=== PATIENT | male | born 1995 | race Caucasian/White ===

== ENCOUNTER 2020-10-13 19:04 | Emergency (ER) | payer BC ==
[~2020-10-13] VITALS: Ht 177.8 cm; Wt 78.5 kg
[2020-10-13 19:08] VITALS: TEMP 101.1
[2020-10-13 20:22] LABS: MUCOUS Present /lpf; PH 7 (5-8); SQUAMOUS EPITHELIAL None Seen /hpf; URINE APPEARANCE Clear; URINE BACTERIA None Seen /hpf; URINE BILIRUBIN Negative (NEGATIVE); URINE BLOOD Negative (NEGATIVE); URINE COLOR Amber; URINE GLUCOSE Negative (NEGATIVE); URINE KETONE Negative (NEGATIVE); URINE LEUKOCYTE ESTERASE Negative (NEGATIVE); URINE NITRATE Negative (NEGATIVE); URINE PROTEIN(semi-quant) Negative (NEGATIVE); URINE RBC 0-2 /hpf; URINE UROBILINOGEN >=4.0 mg/dL (NEGATIVE); URINE WBC 0-2 /hpf
[2020-10-13 20:22] LABS: BASO % 0.8 % (0.0-2.0); GRAN # 1.1 (1.4-6.5); GRAN % 46.1 % (42.2-75.2); HEMATOCRIT 38.1 % (42.0-52.0); HEMOGLOBIN 13.1 g/dl (13.5-18.0); LYMPH # 0.9 (1.2-3.4); MEAN CELL VOLUME 83 fl (80.0-100.0); MEAN CORPUSCULAR HEMOGLOBIN 28 pg (27.0-31.0); MEAN CORPUSCULAR HGB CONC 34 g/dl (33.0-37.0); MEAN PLATELET VOLUME 10.8 fl (7.4-10.4); MONO # 0.3 (0.1-0.6); MONO % 14.1 % (1.7-9.3); PLATELET COUNT 103 K/mm3 (130-400); RED BLOOD COUNT 4.61 M/mm3 (4.20-5.60); REDCELL DISTRIBUTION WIDTH-CV 13.7 % (11.5-14.5)
[2020-10-13 20:30] LABS: ALANINE AMINOTRANSFERASE 582 U/L (4-49); ALBUMIN 4.2 gm/dL (3.5-5.0); ALKALINE PHOSPHATASE 208 U/L (50-136); ANION GAP 10 mmol/L (7-16); AST,SGOT 489 U/L (15-37); BILIRUBIN,TOTAL 2.3 mg/dL (0.0-1.0); BLOOD UREA NITROGEN 17 mg/dL (9-20); CALCIUM 8.9 mg/dL (8.4-10.2); CARBON DIOXIDE 27 mmol/L (22-30); CHLORIDE 97 mmol/L (98-107); CREATININE, serum 1.04 (0.66-1.25); GLUCOSE 100 mg/dL (74-106); LIPASE 139 U/L (23-300); POTASSIUM 3.9 mmol/L (3.4-5.0); SODIUM 134 mmol/L (137-145)
[2020-10-13 20:35] LABS: COLLECTION METHOD CLEAN CATCH
[2020-10-13 20:42] LABS: TROPONIN-I < 0.012 ng/mL (0.000-0.035)
[2020-10-13 23:57] VITALS: BP 111/69; PULSE 107
== END 2020-10-13 23:57 | disposition short-term general hospital (02) ==
LOC: COL.ER 19:04
PROVIDERS: Emergency Medicine
DX: R50.9 Fever, unspecified (principal); R10.11 Right upper quadrant pain; R06.02 Shortness of breath; Z20.822 Contact with and (suspected) exposure to COVID-19; Z88.2 Allergy status to sulfonamides
CPT/HCPCS: J0692; J1100; J7030; Q9967

== ENCOUNTER → 2020-10-19 | Outpatient (CLI) | payer BC | LOC: COL.RAD → EDBD 07:30 | DX: M54.16 Radiculopathy, lumbar region (principal) ==